=== PATIENT | female | born 1940 | race Caucasian/White ===

== ENCOUNTER 2017-10-30 05:31 | Day surgery (SDC) | payer OTHER ==
[~2017-10-30] VITALS: Ht 149.9 cm; Wt 68.0 kg
--- NOTE | ~2017-10-30 | O ---
[facility] [place] [address] [address] OPERATIVE REPORT Name: CHACHO ARECHIGA Floyd Room #: [facility]..#: [id number] Admission: 10/30/17 Attend Phys: Real Hernandez MD Discharge: 10/30/17 Date of : 40 Report #: [id number] THIS REPORT FOR: //name// CC: MARIAN Thomas Physician staff Real Hernandez DATE OF SERVICE: 10/30/2017 PREOPERATIVE DIAGNOSIS: Unilateral left-sided nasal lacrimal duct obstruction. POSTOPERATIVE DIAGNOSIS: Unilateral left-sided nasal lacrimal duct obstruction. OPERATION PERFORMED: Unilateral left-sided endoscopic dacryocystoplasty with silicone intubation. ANESTHESIA: General. COMPLICATIONS: None. INDICATIONS FOR SURGERY: This patient has acquired unilateral nasal lacrimal duct stenosis with chronic tearing and discharge. The current procedures are undertaken in order to improve the patient's level of lacrimal outflow and visual clarity. Informed consent was obtained to include but not limited to the potential risks for damage to the eye, loss of vision, bleeding, infection, failure to improve the problem and need for further surgery. DESCRIPTION OF OPERATION: The patient was taken to the operating room, where general anesthesia was administered. The medial canthus was anesthetized with 2% Xylocaine with epinephrine mixed with equal parts of 0.75% Marcaine with Wydase. The lateral wall of the nose was then injected with the same anesthetic mixture. The nose was packed with Afrin-soaked Cottonoids. The patient was then prepped and draped in the usual sterile fashion. The superior and inferior puncta were then atraumatically dilated with a punctum dilator. A size 0 lacrimal probe was then passed through the superior canalicular system and through the stenosed nasal lacrimal duct. The nasal packing was removed and the endoscope was brought into the field. The inferior turbinate was gently infractured with a Marne periosteal elevator to allow visualization of the inferior meatus in the area of the opening of the valve of Hasner in the nose. The probe was found and confirmed to be in the proper location. It was removed and subsequently replaced with a size 1 and a size 2 [facility] [address] [place] [address] OPERATIVE REPORT Name: CHACHO ARECHIGA Room #: [facility]P [facility] M.R.#: [id number] Admission: 10/30/17 Attend Phys: Real Hernandez MD Discharge: 10/30/17 Date of : 40 Report #: [id number] Zaldivar probe, which also had their passage confirmed endoscopically to be in the proper location. A 3 x 15 LacriCatheter was lubricated with a small quantity of ophthalmic antibiotic ointment. The LacriCatheter was then passed through the superior canalicular system and the stenosed nasal lacrimal duct. The LacriCatheter was confirmed to be in the proper location endoscopically intranasally in the inferior meatus. The LacriCatheter was inflated to 9 atmospheres for 90 seconds and deflated. The catheter was then inflated to 9 atmospheres for 60 seconds. The catheter was then withdrawn to the proximal black ring. It was then inflated to 9 atmospheres for 90 seconds. The balloon was then deflated and reinflated to 9 atmospheres for 60 seconds. The balloon was the aspirated and withdrawn to the distal black ring. It was then inflated to 9 atmospheres for 90 seconds. The balloon was deflated and reinflated to 9 atmospheres for 60 seconds. The balloon was then deflated and vigorously aspirated as it was withdrawn through the superior canalicular system. A Benitez tube was then passed through the superior canalicular system and out the dilated duct. The Benitez tube was secured under the inferior turbinate in the inferior meatus with a Benitez hook and retrieved endoscopically. The Benitez tube was then passed through the inferior canalicular system in a similar fashion and was retrieved endoscopically in the nose atraumatically. The Benitez tube was then secured to itself with 3 square throws and then to the lateral wall of the nose with a 5-0 Prolene suture. Antibiotic steroid drops were then placed in the eye. A small quantity of ophthalmic antibiotic ointment was placed on the Benitez tube. The patient was then transported to the recovery area with no anesthetic or operative complications being noted. <ELECTRONICALLY SIGNED> By: Real Hernandez MD 11/06/17 [id number] Real Hernandez MD /nt
[~2017-10-30 05:31] MED LIST: ATENOLOL 50MG T50 M1 PO; CALCIUM 600 +1 EAC1 PO; CITRUCEL500 MG PO; GAVISCON TABLE1 EACH PO; LEVOXYL112 MCG PO; LORATIDINE 10 M10 M1 PO; OMEPRAZOLE 20 M20 M1 PO; OXYBUTYNIN 5 MG5 M2 PO; SALAGEN5 MG PO; SYSTANE BALANCE10 ML OPHTHALMIC; THERA TEARS NU1 EACH PO; TRAMADOL 50 MG50 MG PO; VITAMIN C500 M2 PO; VITAMIN D31000 UNIT PO; ZOCOR20 MG PO; [UNRECOGNIZED DRUG - OTHER] MUCOUS MEM
== END 2017-10-30 17:00 | disposition home or self-care (01) ==
LOC: OR 05:31 → TBA 05:31 → OR 10:43
DX: H04.552 Acquired stenosis of left nasolacrimal duct (principal); I10 Essential (primary) hypertension; E78.00 Pure hypercholesterolemia, unspecified; K21.9 Gastro-esophageal reflux disease without esophagitis; E03.9 Hypothyroidism, unspecified; Z98.41 Cataract extraction status, right eye; Z98.42 Cataract extraction status, left eye; Z98.890 Other specified postprocedural states; Z79.899 Other long term (current) drug therapy; Z90.710 Acquired absence of both cervix and uterus; Z88.6 Allergy status to analgesic agent; Z88.8 Allergy status to other drugs, medicaments and biological substances
CPT/HCPCS: 50010; 50101; 50386; 50398; 51777; 55343; 56528; 62110; 62900; 64037; 70005